=== PATIENT | female | born 1955 | race Caucasian/White ===

== ENCOUNTER 2017-01-11 15:56 | Inpatient (IN) | payer MEDICAID, OTHER ==
[~2017-01-11] VITALS: Ht 167.6 cm; Wt 46.9 kg
[2017-01-11] MEDS ORDERED: MORPHINE SULFATE 4 MG/ML, 1ML ONE ×2 (16:29→17:12)
[2017-01-11] MEDS ORDERED: SODIUM CHLORIDE FLUSH 10ML SYR IVF ONE (16:30)
[2017-01-11] MEDS ORDERED: SODIUM CHLORIDE 0.9% 1,000ML IVBOLUS ONE (16:30)
[2017-01-11] MEDS: MORPHINE SULFATE 4 MG/ML, 1ML IVPush PRN ×2 (16:30→17:24)
[2017-01-11] MEDS ORDERED: ONDANSETRON 2MG/ML, 2ML IVPush ONE (16:30)
[2017-01-11] MEDS ORDERED: ONDANSETRON 2MG/ML, 2ML ONE ×2 (16:30→21:37)
[2017-01-11 16:43] LABS: HEMOGLOBIN 14.4 g/dL (11.7-16.4)
[2017-01-11 16:49] LABS: DIFF TOTAL CELLS COUNTED 100 CELL DIFF
[2017-01-11 17:02] LABS: ASPARTATE AMINO TRANSFERASE 23 U/L (15-37); BLOOD UREA NITROGEN 10 mg/dL (7-18)
[2017-01-11 17:44] LABS: VERIFY COUNTS? YES
[2017-01-11] MEDS ORDERED: OMNIPAQUE 350 MG/ML, 100ML BOTTLE ONE (18:07)
[2017-01-11] MEDS ORDERED: CEFOTETAN PMX 1GM/50ML 50 ML IV ONE (19:00)
[2017-01-11] MEDS ORDERED: CEFOTETAN PMX 1GM/50ML 50 ML ONE (20:25)
[2017-01-11] MEDS ORDERED: BUPIVACAINE/PF-EPI 0.5% 1:200K ONE (20:57)
[2017-01-11] MEDS ORDERED: MIDAZOLAM 1 MG/ML, 2ML ONE (21:33)
[2017-01-11] MEDS ORDERED: KETAMINE 10 MG/ML, 20ML ONE (21:33)
[2017-01-11] MEDS ORDERED: FENTANYL PF 250 MCG/5ML ONE (21:33)
[2017-01-11] MEDS ORDERED: PHENYLEPHRINE 10 MG/ML ONE (21:37)
[2017-01-11] MEDS ORDERED: ROCURONIUM 10 MG/ML ONE (21:37)
[2017-01-11] MEDS ORDERED: EPHEDRINE 50 MG/ML, 1ML ONE (21:37)
[2017-01-11] MEDS ORDERED: NEOSTIGMINE 1 MG/ML, 10ML ONE (21:37)
[2017-01-11] MEDS ORDERED: SUCCINYLCHOLINE 20 MG/ML, 10ML ONE (21:37)
[2017-01-11] MEDS ORDERED: PROPOFOL 10 MG/ML, 20ML ONE (21:37)
[2017-01-11] MEDS ORDERED: GLYCOPYRROLATE 0.2MG/1ML ONE (21:37)
[2017-01-11] MEDS ORDERED: BUPIVACAINE/PF-EPI 0.5% 1:200K IM ONE (21:51)
[2017-01-11] MEDS ORDERED: METOCLOPRAMIDE 5 MG/ML, 2ML IV PRN (22:30)
[2017-01-11] MEDS ORDERED: ALBUTEROL SULFATE 2.5 MG/3 ML NPPB PRN (22:30)
[2017-01-11] MEDS ORDERED: ACETAMINOPHEN 325 MG TABLET PO PRN ×2 (22:30→23:00)
[2017-01-11] MEDS ORDERED: PROMETHAZINE 25 MG/ML, 1ML IV PRN (22:30)
[2017-01-11] MEDS ORDERED: OXYcodone 5 MG/5 ML ORAL.SOL UDC PO PRN (22:30)
[2017-01-11] MEDS ORDERED: FENTANYL PF 100 MCG/2ML IV PRN (22:30)
[2017-01-11] MEDS ORDERED: HYDROmorphone 1 MG/ML, 1ML IV PRN (22:30)
[2017-01-11] MEDS ORDERED: ONDANSETRON 2MG/ML, 2ML IVPush PRN (23:00)
[2017-01-11] MEDS ORDERED: PROMETHAZINE 25 MG/ML, 1ML IM PRN (23:00)
[2017-01-11] MEDS ORDERED: ENALAPRILAT 1.25 MG/ML, 2ML IVPush PRN (23:00)
[2017-01-11] MEDS ORDERED: OXYcodone/APAP 7.5/325MG TABLET PO PRN (23:00)
[2017-01-11] MEDS ORDERED: LABETALOL 5MG/ML, 20ML IVPush PRN (23:00)
[2017-01-11] MEDS ORDERED: OXYcodone 5 MG/5 ML ORAL.SOL UDC ONE (23:17)
[2017-01-11] MEDS ORDERED: ACETAMINOPHEN 325 MG TABLET ONE (23:17)
[2017-01-11] MEDS ORDERED: ACETAMINOPHEN 650 MG/20.3 ML UDC ONE (23:17)
[2017-01-12 00:30] VITALS: BP 111/62
[2017-01-12] MEDS: PIPERACILLIN/TAZO/PMX 3.375GM 50 ML IV SCH ×3 (02:31→16:42)
[2017-01-12] MEDS: D5%-0.45NACL+KCL 20MEQ 1,000 ML IV SCH ×4 (02:31→23:27)
[2017-01-12 02:45] VITALS: BP 109/59
[2017-01-12 05:34] LABS: HEMOGLOBIN 12.9 g/dL (11.7-16.4)
[2017-01-12 05:45] LABS: BLOOD UREA NITROGEN 7 mg/dL (7-18)
[2017-01-12 07:33] VITALS: BP 97/65
[2017-01-12] MEDS: FAMOTIDINE 20 MG/2 ML IVPush SCH ×2 (08:25→19:45)
[2017-01-12] MEDS ORDERED: MORPHINE SULFATE 4 MG/ML, 1ML ONE ×2 (12:48→15:24)
[2017-01-12] MEDS: morphine SULFATE 10 MG/ML, 1ML IVPush PRN ×3 (12:50→19:44)
[2017-01-12 13:25] VITALS: BP 110/68
[2017-01-12 19:59] VITALS: BP 127/75
[2017-01-13] MEDS: PIPERACILLIN/TAZO/PMX 3.375GM 50 ML IV SCH ×3 (00:05→16:05)
[2017-01-13 03:05] VITALS: BP 134/68
[2017-01-13 06:13] LABS: HEMOGLOBIN 14.2 g/dL (11.7-16.4)
[2017-01-13 06:25] LABS: BLOOD UREA NITROGEN 2 mg/dL (7-18)
[2017-01-13 06:43] VITALS: BP 122/66
[2017-01-13] MEDS: D5%-0.45NACL+KCL 20MEQ 1,000 ML IV SCH ×2 (06:43→16:04)
[2017-01-13] MEDS: FAMOTIDINE 20 MG/2 ML IVPush SCH ×2 (08:44→20:13)
[2017-01-13 12:35] VITALS: BP 137/80
[2017-01-13 20:00] VITALS: BP 145/89
[2017-01-14] MEDS: PIPERACILLIN/TAZO/PMX 3.375GM 50 ML IV SCH ×2 (00:38→08:47)
[2017-01-14 00:42] VITALS: BP 146/80
[2017-01-14] MEDS: D5%-0.45NACL+KCL 20MEQ 1,000 ML IV SCH ×4 (00:48→19:19)
[2017-01-14 04:46] LABS: HEMOGLOBIN 14.1 g/dL (11.7-16.4)
[2017-01-14 04:56] LABS: BLOOD UREA NITROGEN 3 mg/dL (7-18)
[2017-01-14 07:17] VITALS: BP 130/81
[2017-01-14] MEDS: FAMOTIDINE 20 MG/2 ML IVPush SCH ×2 (08:47→20:52)
[2017-01-14] MEDS: ENOXAPARIN 40 MG/0.4 ML SQ SCH (10:54)
[2017-01-14 15:21] VITALS: BP 143/89
[2017-01-14 20:11] VITALS: BP 153/83
[2017-01-14] MEDS: CIPROFLOXACIN/PMX 400MG/200ML 200 ML IV SCH (20:51)
[2017-01-14] MEDS ORDERED: CIPROFLOXACIN LACTATE 400 MG in DEXTROSE 5% 100 ML IV SCH (21:00)
[2017-01-15 04:16] VITALS: BP 121/87
[2017-01-15 05:46] LABS: HEMOGLOBIN 15.1 g/dL (11.7-16.4)
[2017-01-15 05:52] LABS: BLOOD UREA NITROGEN 7 mg/dL (7-18)
[2017-01-15 07:17] VITALS: BP 118/76
[2017-01-15] MEDS: ENOXAPARIN 40 MG/0.4 ML SQ SCH (09:39)
[2017-01-15] MEDS: FAMOTIDINE 20 MG/2 ML IVPush SCH ×2 (10:08→21:06)
[2017-01-15] MEDS: CIPROFLOXACIN/PMX 400MG/200ML 200 ML IV SCH ×2 (10:09→21:06)
[2017-01-15 13:25] VITALS: BP 125/84
[2017-01-15 20:36] VITALS: BP 134/81
[2017-01-16 03:54] VITALS: BP 147/79
[2017-01-16 05:55] LABS: HEMOGLOBIN 14.9 g/dL (11.7-16.4)
[2017-01-16 07:52] VITALS: BP 133/86
[2017-01-16] MEDS: FAMOTIDINE 20 MG/2 ML IVPush SCH (09:00)
[2017-01-16] MEDS: CIPROFLOXACIN/PMX 400MG/200ML 200 ML IV SCH (09:56)
[2017-01-16] MEDS: ENOXAPARIN 40 MG/0.4 ML SQ SCH (09:57)
[2017-01-16] MEDS ORDERED: DIAZ2TAB3 PO (12:26)
[2017-01-16] MEDS ORDERED: DEXA2TAB PO (12:27)
[2017-01-16] MEDS ORDERED: OXYC-223 PO (13:09)
[2017-01-16] MEDS ORDERED: CIPR500T87 PO (13:10)
[2017-01-16 13:51] VITALS: BP 130/74
== END 2017-01-16 14:20 | disposition home or self-care (01) | DRG 342 ==
LOC: ED 20:55 → EDIP 22:33 → 4NOR 01-12 → DCLOUNGE 01-16 13:53
PROVIDERS: ADMIT Surgery; ATTEND Surgery
PROC: 0T9B70Z Drainage of Bladder with Drainage Device, Via Natural or Artificial Opening (ICD-10-PCS; 2017-01-11)
PROC: 0DTJ4ZZ Resection of Appendix, Percutaneous Endoscopic Approach (ICD-10-PCS; principal; 2017-01-11 21:15)
DX: K50.00 Crohn's disease of small intestine without complications (principal); N39.0 Urinary tract infection, site not specified; K55.9 Vascular disorder of intestine, unspecified; F17.210 Nicotine dependence, cigarettes, uncomplicated; B96.20 Unspecified Escherichia coli [E. coli] as the cause of diseases classified elsewhere
CPT/HCPCS: 36415; 74177; 80048; 80053; 81001; 83605; 83690; 85025; 87040; 87077; 87086; 87186; 88304; 93005; 96361; 96374; 96375; J0744; J1650; J2250; J2405; J2543; J2704; J2710; J3010; J3490; Q9967; J0330; J2270; J2370; J3480; J7030; S0028; S0074

== ENCOUNTER 2017-12-05 09:32 | Emergency (ER) | payer MEDICAID ==
[~2017-12-05] VITALS: Ht 165.1 cm; Wt 46.0 kg
[~2017-12-05 09:32] MED LIST: CIPR500T87 PO; DEXA2TAB PO; DIAZ2TAB3 PO; OXYC-306 PO
[2017-12-05 09:46] VITALS: BP 120/85
== END 2017-12-05 11:52 | disposition home or self-care (01) ==
LOC: ED 11:40
DX: S62.336A Displaced fracture of neck of fifth metacarpal bone, right hand, initial encounter for closed fracture (principal); X58.XXXA Exposure to other specified factors, initial encounter; Y93.89 Activity, other specified; Y92.89 Other specified places as the place of occurrence of the external cause; Y99.8 Other external cause status
CPT/HCPCS: 29125; 99284

== ENCOUNTER 2018-03-07 11:55 | Emergency (ER) | payer MEDICAID ==
[~2018-03-07] VITALS: Ht 162.6 cm; Wt 46.4 kg
[2018-03-07] MEDS ORDERED: HYDR25TA6 PO (12:23)
[2018-03-07 12:43] LABS: CULTURE INDICATED? YES; MICROSCOPIC INDICATED
[2018-03-07 12:59] LABS: BASOPHILS # (AUTO) 0.06 x10^3/uL (0-0.1); BASOPHILS % (AUTO) 1 % (0-1); EOSINOPHILS # (AUTO) 0.25 x10^3/uL (0-0.4); EOSINOPHILS % (AUTO) 3 % (1-7); LYMPHOCYTES # (AUTO) 2.47 x10^3/uL (1-3.4); LYMPHOCYTES % (AUTO) 30 % (22-44); MD NO; MEAN CORPUSCULAR HEMOGLOBIN 29.3 pg (27.0-34.8); MEAN CORPUSCULAR HGB CONC 33.4 g/dL (32.4-35.8); MEAN CORPUSCULAR VOLUME 87.7 fL (80-100); MEAN PLATELET VOLUME 7.2 fL (7.4-10.4); MONOCYTES # (AUTO) 0.51 x10^3/uL (0.2-0.8); MONOCYTES % (AUTO) 6 % (2-9); NEUTROPHILS # (AUTO) 4.82 x10^3/uL (1.8-6.8); NEUTROPHILS % (AUTO) 59 % (42-75); PLATELET COUNT 324 x10^3/uL (130-400); RED BLOOD COUNT 4.27 x10^6/uL (3.82-5.3); RED CELL DISTRIBUTION WIDTH 13.8 % (9.6-15.2)
[2018-03-07] MEDS ORDERED: ONDANSETRON ODT 4 MG PO ONE (13:00)
[2018-03-07] MEDS ORDERED: SODIUM CHLORIDE FLUSH 10ML SYR IVF ONE (13:00)
[2018-03-07] MEDS ORDERED: MORPHINE SULFATE 4 MG/ML, 1ML IVPush PRN (13:00)
[2018-03-07 13:12] LABS: ALANINE AMINOTRANSFERASE 20 U/L (12-78); ALBUMIN 3.1 g/dL (3.4-5.0); ANION GAP 4 mmol/L (5-15); CALCIUM 8.8 mg/dL (8.5-10.1); CHLORIDE 106 mmol/L (98-107)
[2018-03-07 13:14] LABS: ALKALINE PHOSPHATASE 76 U/L (45-117); BILIRUBIN,TOTAL 0.3 mg/dL (0.2-1.0)
[2018-03-07] MEDS ORDERED: CEFTRIAXONE 1,000 MG ONE (13:47)
[2018-03-07] MEDS ORDERED: CEFTRIAXONE 1,000 MG IM ONE (14:00)
[2018-03-07] MEDS ORDERED: CEFTRIAXONE PMX 1GM/50ML 50 ML IVPB ONE (14:00)
[2018-03-07 16:05] VITALS: BP 138/79
== END 2018-03-07 16:07 | disposition home or self-care (01) ==
LOC: ED 14:50
DX: N30.00 Acute cystitis without hematuria (principal); Z90.49 Acquired absence of other specified parts of digestive tract; Z87.442 Personal history of urinary calculi
CPT/HCPCS: 36415; 74018; 80053; 81001; 83605; 85025; 87040; 87086; 96372; 99285; J0696

== ENCOUNTER 2018-04-03 13:35 | Day surgery (SDC) | payer MEDICAID ==
[~2018-04-03] VITALS: Ht 165.1 cm; Wt 44.8 kg
[~2018-04-03 13:35] MED LIST changes: +HYDR25TA6 PO; +PROPOFOL 10 MG/ML, 20ML ONE; +SUCCINYLCHOLINE 20 MG/ML, 10ML ONE
[2018-04-03] MEDS ORDERED: LACTATED RINGERS 1,000 ML IV SCH (14:10)
[2018-04-03] MEDS ORDERED: ALEN70TA5 PO (14:12)
[2018-04-03 14:15] VITALS: BP 119/77
[2018-04-03 14:26] LABS: MICROSCOPIC AUTO
[2018-04-03] MEDS ORDERED: FENTANYL PF 100 MCG/2ML ONE ×2 (15:20→16:54)
[2018-04-03] MEDS ORDERED: MIDAZOLAM 1 MG/ML, 2ML ONE (15:20)
[2018-04-03] MEDS ORDERED: OMNIPAQUE 350 MG/ML, 50 ML BOTTLE ONE (18:08)
== END 2018-04-03 20:15 | disposition home or self-care (01) ==
LOC: OR 13:35 → 4NOR 18:11 → OR 20:15
PROVIDERS: ATTEND Urology
DX: N20.0 Calculus of kidney (principal); J44.9 Chronic obstructive pulmonary disease, unspecified; I10 Essential (primary) hypertension; Z98.890 Other specified postprocedural states; Z93.3 Colostomy status; Z96.651 Presence of right artificial knee joint
CPT/HCPCS: 52356; 74420; 81001; 87086; C1758; C1769; C2617; G0378; J0330; J2250; J2704; J3010; J7120; Q9967

== ENCOUNTER 2020-05-22 21:19 | Emergency (ER) | payer MEDICAID, MEDICARE ==
[~2020-05-22] VITALS: Ht 167.6 cm; Wt 46.3 kg
[~2020-05-22 21:19] MED LIST changes: +ALEN70TA6 PO; -PROPOFOL 10 MG/ML, 20ML ONE; -SUCCINYLCHOLINE 20 MG/ML, 10ML ONE
[2020-05-22 22:56] VITALS: BP 138/88
== END 2020-05-22 23:29 | disposition home or self-care (01) ==
LOC: ED 21:30
DX: R07.89 Other chest pain (principal); J44.9 Chronic obstructive pulmonary disease, unspecified; F17.200 Nicotine dependence, unspecified, uncomplicated; Z90.89 Acquired absence of other organs; W01.0XXA Fall on same level from slipping, tripping and stumbling without subsequent striking against object, initial encounter; Y93.89 Activity, other specified; Y92.009 Unspecified place in unspecified non-institutional (private) residence as the place of occurrence of the external cause; Y99.8 Other external cause status
CPT/HCPCS: 71111; 99283